=== PATIENT | female | born 1975 | race Hispanic/Latino ===

== ENCOUNTER → 2025-01-13 | Outpatient (CLI) | payer BC, OTHER ==
--- NOTE | 2025-01-14 08:44 | HMCIMG ---
MAMMO PROMOTIONAL SCRN MAMMO HISTORY: Screening mammogram. COMPARISON: None TECHNIQUE: Bilateral screening mammogram with CAD was performed with craniocaudal and mediolateral oblique projections. FINDINGS: The breasts are extremely dense which lowers the sensitivity of mammogram. Asymmetric breast densities are seen in both breasts upper lower quadrant of the right breast and lower outer quadrant of the left breast. Tomogram and coned compression views are recommended for complete evaluation. If these densities persist, ultrasound may then be performed. There is no other evidence of a dominant mass, or suspicious microcalcification. There is no evidence of nipple retraction or skin thickening. IMPRESSION: 1. Asymmetric breast densities are seen in both breasts upper lower quadrant of the right breast and lower outer quadrant of the left breast. Tomogram and coned compression views are recommended for complete evaluation. If these densities persist, ultrasound may then be performed. Patient was entered into a reminder system with a target due date for their next mammogram. BI-RADS: CATEGORY 0: INCOMPLETE. NEED ADDITIONAL IMAGING EVALUATION Diagnostic mammogram is recommended. Recommend monthly self breast exam as well as annual clinical examination. A negative x-ray should not delay biopsy if a dominant or clinically suspicious mass is present, since 8-10% of cancers are not identified by mammography. Dense breasts particularly, may obscure an underlying neoplasm. Some of these may be detected clinically and therefore, clinical examination is an essential part of breast evaluation.
== END | disposition home or self-care (01) ==
LOC: CANSCHCLI → RAH 14:39
PROVIDERS: ATTEND Nurse Practitioner Family
DX: Z12.31 Encounter for screening mammogram for malignant neoplasm of breast (principal); N64.89 Other specified disorders of breast
CPT/HCPCS: 77067

== ENCOUNTER → 2025-06-08 | Outpatient (CLI) | payer OTHER, SELFPAY ==
--- NOTE | 2025-06-09 08:50 | HMCIMG ---
BILATERAL BREAST ULTRASOUND: Follow-up for prior mammogram from 01/13/2025 due to asymmetry of breast density in both breasts in upper and lower quadrant of right breast at lower outer quadrant of the left breast. Findings: Real-time examination of the both breasts demonstrates heterogeneous echotexture throughout both the breasts without evidence of focal solid or cystic masses. The left axilla has 2 benign-appearing lymph node measuring 1.3 x 0.5 x 0.7 cm second lymph node measuring 1.8 x 0.7 x 0.7 cm. IMPRESSION: Dense breasts with no hypoechoic lesion seen. I would recommend annual mammography with tomography with bilateral breast sonogram. FINAL ASSESSMENT: ACR: BI-RAD- 2. Benign Finding.
--- NOTE | 2025-06-09 08:52 | HMCIMG ---
DIGITAL bilateral DIAGNOSTIC MAMMOGRAM WITH TOMOSYNTHESIS, DATED 06/08/2025 12:00 AM [employer] Technique: The digital mammographic examination of both breasts in craniocaudal and mediolateral oblique views along with CAD was obtained. Tomosynthesis of both breasts was obtained. Coned-down compression view of both breasts were also obtained. History: This is a 50 years year-old female 1, para 1 Ab 0 for 3D Diagnostic mammogram. Patient has mother, maternal grandmother and maternal aunt with family history of breast cancer. Patient has no complaint Reference:Prior mammogram from 01/13/2025 is available.. Breast composition: Breast composition C: The breasts are heterogeneously dense, which may obscure small masses. Finding: The digital mammographic examination of both breasts in craniocaudal and mediolateral oblique view along with CAD demonstrates to be moderately heterogeneously dense due to fibroglandular stromal elements. Ultrasound of both breasts demonstrate no lesion seen.. There is no evidence of any dendritic mass, cluster microcalcification or architectural distortion. The Tomosynthesis demonstrates no lesion seen. The retromammary fat appears to be normal. IMPRESSION: Unchanged from prior mammography. NO RADIOGRAPHIC EVIDENCE OF MALIGNANT CHANGES. WE WOULD RECOMMEND ANNUAL FOLLOW UP WITH TOMOSYNTHESIS UNLESS OTHERWISE CLINICALLY INDICATED. FINAL ASSESSMENT: ACR: BI-RAD- 2. Benign Finding. NOTE: IF A WORK-UP OF THIS PATIENT LEADS TO A BIOPSY, PLEASE FORWARD A COPY OF THE PATHOLOGY REPORT TO OUR OFFICE REQUIRED BY [employer] APRIL 27, 1994. A NEGATIVE MAMMOGRAM SHOULD NOT PRECLUDE BIOPSY OF A CLINICALLY PALPABLE SUSPICIOUS MASS, 10% OF BREAST CANCERS ARE MAMMOGRAPHICALLY OCCULT. THIS MAMMOGRAPHY FACILITY IS FULLY ACCREDITED BY THE FOOD AND DRUG [employer]MINISTRATION (FDA). THANK YOU FOR THIS REFERRAL.
== END | disposition home or self-care (01) ==
LOC: RAH 07:39
PROVIDERS: ATTEND Nurse Practitioner Family
DX: R92.333 Mammographic heterogeneous density, bilateral breasts (principal); R92.8 Other abnormal and inconclusive findings on diagnostic imaging of breast; Z80.3 Family history of malignant neoplasm of breast
CPT/HCPCS: 77062; 77066